=== PATIENT | male | born 1980 | race Caucasian/White ===

== ENCOUNTER 2017-01-18 11:57 | Emergency (ER) | payer OTHER ==
[~2017-01-18] VITALS: Ht 180.3 cm; Wt 122.5 kg
[2017-01-18] MEDS ORDERED: NACL 0.9% 1,000 ML IV ONE (12:00)
[2017-01-18] MEDS ORDERED: LORazepam 2 MG/ML VIAL IVP ONE (12:00)
[2017-01-18 12:05] VITALS: BP 144/103
--- NOTE | 2017-01-18 12:40 | NUR ---
36/M BIB EMS FROM HOME C/O WITNESSED SEIZURE LASTING 1 MINUTE TODAY; PT DENIES PAIN AT THIS TIME. PT A&OX4 AT THIS TIME; PER [facility], PT TRYING TO QUIT DRINKING, AND HAD LAST DRINK YESTERDAY, MID-DAY. DENIES ANY MEDICAL HX. ERMD NOTIFED OF PATIENT STATUS.
--- NOTE | 2017-01-18 12:50 | NUR ---
PT TAKEN TO CT VIA GURNEY BY [employer].
--- NOTE | 2017-01-18 12:59 | NUR ---
PT RETURNED FROM CT VIA [facility] WITH [facility] METEOROLOGIST.
[2017-01-18] MEDS ORDERED: MAG SULF 2000 MG/WATER PREMIX 50 ML IV ONE (13:00)
[2017-01-18] MEDS ORDERED: POTASSIUM CHLORIDE 10 MEQ TABER PO ONE (13:00)
[2017-01-18 14:32] VITALS: BP 142/90
--- NOTE | 2017-01-18 14:32 | NUR ---
Patient discharged with v/s stable. Written and verbal after care instructions given and explained. Patient verbalized understanding. Ambulatory with steady gait. All questions addressed prior to discharge. Advised to follow up with PMD.
== END 2017-01-18 14:32 | disposition home or self-care (01) ==
LOC: MED 11:57
DX: R56.9 Unspecified convulsions (principal); F10.239 Alcohol dependence with withdrawal, unspecified; F12.10 Cannabis abuse, uncomplicated; E87.8 Other disorders of electrolyte and fluid balance, not elsewhere classified
CPT/HCPCS: 36415; 70450; 80048; 80305; 83735; 85025; 93005; 96361; 96365; 96375; 99285; J2060; J3475; J7030

== ENCOUNTER 2022-09-04 15:21 | Emergency (ER) | payer OTHER ==
[~2022-09-04] VITALS: Ht 182.9 cm; Wt 113.4 kg
[2022-09-04 15:26] VITALS: BP 117/63
--- NOTE | 2022-09-04 15:29 | NUR ---
PT JAI MORALES TO LOBBY
--- NOTE | 2022-09-04 15:50 | NUR ---
41/M BIBA FROM HOME C/O BACK PAIN ONSET AFTER DRINKING ETOH AT 0400 TODAY. DENIES FALL OR INJURY. PT REPORTS PAIN IMPROVED AT 5/10 AT THIS TIME. AAO4, AMBULATORY, VITALS STABLE. PMH: HTN, CIRRHOSIS, CARDIAC ARREST
[2022-09-04] MEDS ORDERED: ACET-10509 PO (17:56)
[2022-09-04] MEDS ORDERED: CAPS1ADH5 TP (17:56)
--- NOTE | 2022-09-04 18:35 | NUR ---
PATIENT LEFT W/O D/C WORK/INSTRUCTIONS
== END 2022-09-04 18:35 | disposition home or self-care (01) ==
LOC: MED 15:21
DX: M54.50 Low back pain, unspecified (principal)
CPT/HCPCS: 70450; 72100; 99284